=== PATIENT | female | born 1985 | race Caucasian/White ===

== ENCOUNTER 2023-08-14 05:16 | Day surgery (SDC) | payer OTHER ==
[2023-08-10 17:35] VITALS: BMI 29.7
[~2023-08-14 05:16] MED LIST: ceFAZolin SODIUM 1 GM VIAL IVPB ONE
[2023-08-14] MEDS ORDERED: FENTANYL CITRATE/PF 50 MCG/ML VIAL ONE ×2 (14:20→14:45)
[2023-08-14] MEDS ORDERED: PROPOFOL 40 ML ONE (14:20)
[2023-08-14] MEDS ORDERED: MIDAZOLAM HCL 2 MG/2 ML SINGLE DOSE VIAL ONE (14:45)
[2023-08-14] MEDS ORDERED: ceFAZolin SODIUM 1 GM VIAL IVPB ONE (14:53)
[2023-08-14] MEDS ORDERED: ONDANSETRON 4 MG/2 ML VIAL ONE (14:56)
[2023-08-14] MEDS ORDERED: DEXAMETHASONE SOD PHOSPHATE 4 MG/1 ML VIAL ONE (14:56)
[2023-08-14] MEDS ORDERED: KETOROLAC TROMETHAMINE 30 MG/1 ML VIAL ONE (14:56)
[2023-08-14] MEDS ORDERED: oxyCODONE HCL 5 MG TABLET PO PRN (15:11)
[2023-08-14] MEDS ORDERED: ONDANSETRON 4 MG/2 ML VIAL IVPUSH PRN (15:11)
[2023-08-14] MEDS ORDERED: LACTATED RINGERS SOLUTION 1,000 ML IV SCH (15:15)
[2023-08-14 16:43] VITALS: RESP 20
[2023-08-14 17:55] VITALS: BP 101/60; PULSE 66; TEMP 98
== END 2023-08-14 17:55 | disposition home or self-care (01) ==
LOC: JASU-SURG 05:16
PROVIDERS: ATTEND Obstetrics & Gynecology
PROC: 10D07Z8 Extraction of Products of Conception, Other, Via Natural or Artificial Opening (ICD-10-PCS; principal; 2023-08-14 13:00)
DX: O03.4 Incomplete spontaneous abortion without complication (principal)
CPT/HCPCS: 94760

== ENCOUNTER 2024-07-03 22:54 | Emergency (ER) | payer OTHER ==
[2024-07-03 23:00] VITALS: TEMP 98.3; BMI 30.1
[2024-07-04] MEDS ORDERED: ACETAMINOPHEN INJECTION 100 ML ONE (00:16)
[2024-07-04] MEDS ORDERED: ONDANSETRON 4 MG/2 ML VIAL ONE (00:17)
[2024-07-04 00:26] LABS: BASO % 0.4 % (0-2.0); HEMOGLOBIN 12.2 GM/dL (10.7-15.3); MCH 30.4 pg (25.7-33.7); MCHC 33.1 g/dl (32.0-36.0); MEAN CELL VOLUME 91.8 fl (80-96); MEAN PLT VOLUME 8.6 fl (7.5-11.1); MONO % 7.3 % (3.8-10.2); NEUT % 60.3 % (42.8-82.8); PLATELET COUNT 261 10^3/uL (134-434); RBC 4.03 M/mm3 (3.60-5.2); RDW 13.8 % (11.6-15.6); WHITE BLOOD COUNT 11.2 K/mm3 (4.0-10.0)
[2024-07-04] MEDS: ACETAMINOPHEN 1000 MG/100 ML BAG IVPB ONE (00:27)
[2024-07-04] MEDS: ONDANSETRON 4 MG/2 ML VIAL IVPB ONE (00:28)
[2024-07-04] MEDS: LACTATED RINGERS SOLUTION 1000 ML INFUS.BAG IV ONE (00:28)
[2024-07-04 00:30] LABS: EPI CELLS >36 /uL (0-25.1); HCG,QUALITATIVE URINE Negative; HYALINE CASTS 1 /uL (0-3.1); PH,URINE 6.5 (5.0-8.0); URINE APPEARANCE CLOUDY; URINE BACTERIA 803 /uL (0-1359); URINE BILIRUBIN NEGATIVE (NEGATIVE); URINE COLOR YELLOW; URINE GLUCOSE (UA) NEGATIVE (NEGATIVE); URINE KETONE NEGATIVE (NEGATIVE); URINE LEUK ESTERASE 1+ (NEGATIVE); URINE NITRITE NEGATIVE (NEGATIVE); URINE PROTEIN NEGATIVE (NEGATIVE); URINE RBC 65 /uL (0-23.9); URINE WBC 47 /uL (0-25.8)
[2024-07-04 00:47] LABS: POTASSIUM 3.8 mmol/L (3.5-5.1)
[2024-07-04 00:49] LABS: CALCIUM 9.7 mg/dL (8.5-10.1)
[2024-07-04 00:50] LABS: ALBUMIN 3.6 g/dl (3.4-5.0); BLOOD UREA NITROGEN 11.9 mg/dL (7-18)
[2024-07-04 00:53] LABS: CREATININE 0.8 mg/dL (0.55-1.3)
[2024-07-04 00:54] LABS: TOT PROT 7.1 g/dl (6.4-8.2)
[2024-07-04 01:22] LABS: BILIRUBIN,TOTAL 0.2 mg/dL (0.2-1)
[2024-07-04] MEDS ORDERED: KETOROLAC TROMETHAMINE 15 MG/ML VIAL ONE (01:42)
[2024-07-04] MEDS: KETOROLAC TROMETHAMINE 15 MG/ML VIAL IVPUSH ONE (01:45)
[2024-07-04 03:18] VITALS: BP 127/88; PULSE 64; RESP 18
== END 2024-07-04 03:18 | disposition home or self-care (01) ==
LOC: JER 22:54
PROC: 3E033NZ Introduction of Analgesics, Hypnotics, Sedatives into Peripheral Vein, Percutaneous Approach (ICD-10-PCS; principal; 2024-07-04)
PROC: 3E0333Z Introduction of Anti-inflammatory into Peripheral Vein, Percutaneous Approach (ICD-10-PCS; 2024-07-04)
PROC: 3E033GC Introduction of Other Therapeutic Substance into Peripheral Vein, Percutaneous Approach (ICD-10-PCS; 2024-07-04)
DX: K80.20 Calculus of gallbladder without cholecystitis without obstruction (principal); R11.2 Nausea with vomiting, unspecified; R10.11 Right upper quadrant pain
CPT/HCPCS: 36415; 76705-TC; 80053; 81003; 83690; 84703; 85025; 93005; 93010; 99285-25; J0131